=== PATIENT | female | born 1955 | race Caucasian/White ===

== ENCOUNTER → 2024-11-20 | Outpatient (CLI) | payer MEDICARE, SELFPAY ==
--- NOTE | 2024-11-20 09:00 | XR_ITS ---
Examination: Screening digital mammography, bilateral Computer aided detection 3-D breast Tomosynthesis, bilateral Date and time of exam: November 20, 2024 0811 hours Compared to mammograms dating to October 31, 2009 Indication: Screening Technique: Nonmagnified MLO, CC views of the breasts to been obtained, reconstructed from 3-D Tomosynthesis images. R2 computer aided detection program utilized for evaluation of suspicious masses and/or abnormal calcifications. 3-D Tomosynthesis images obtained. Findings: The breasts are heterogeneously dense, which may obscure small masses 6 mm focal asymmetry retroareolar region right breast Benign calcifications Impression: BI-RADS Category 0: Incomplete: Need additional imaging evaluation 6 mm focal asymmetry retroareolar region right breast, recommend follow-up spot tomographic views of this asymmetry as well as right breast sonography to complete the workup
== END | disposition home or self-care (01) ==
PROVIDERS: Referring Provider Nurse Practitioner Family; Visit Provider Nurse Practitioner Family
DX: Z12.31 Encounter for screening mammogram for malignant neoplasm of breast (principal); R92.8 Other abnormal and inconclusive findings on diagnostic imaging of breast; N64.89 Other specified disorders of breast
CPT/HCPCS: 77063; 77067

== ENCOUNTER → 2025-08-07 | Outpatient (CLI) | payer MEDICARE, MEDICAID, SELFPAY ==
--- NOTE | 2025-08-07 12:40 | XR_ITS ---
Examination: Bone densitometry Date and time of exam:August 07, 2025 1332 hours INDICATIONS: Menopause age 48 calcium and vitamin D 48 years, taking seizure medication Technique: Lumbar spine and hip total bone mineralization values of an calculated. Peak reference and age match control results have been displayed. Findings: Lumbar spine total bone mineralization is0.847 gm/cm2. This is 1.8 standard deviations below peak reference. This is 0.4 standard deviations above age-matched controls. Hip total bone mineralization is 0.531 gm/cm2 This is 3.4 standard deviations below peak reference. This is 1.7 standard deviations above age-matched controls Impression: There is osteopenia based on lumbar spine measurements. There is osteoporosis based on hip measurements
== END | disposition home or self-care (01) ==
PROVIDERS: PCP Nurse Practitioner Family; Referring Provider Nurse Practitioner Family; Visit Provider Nurse Practitioner Family
DX: Z13.820 Encounter for screening for osteoporosis (principal); M85.88 Other specified disorders of bone density and structure, other site; M81.0 Age-related osteoporosis without current pathological fracture
CPT/HCPCS: 77080

== ENCOUNTER 2025-08-12 13:58 | Emergency (ER) | payer MEDICAID, MEDICARE, SELFPAY ==
[2025-08-12 14:27] VITALS: BP 105/66; PULSE 99; RESP 18; TEMP 36.9; O2SAT 95
--- NOTE | 2025-08-12 14:57 | EDNOTE_ITS ---
<Statement entered by Keely Maldonado MD - 08/13/25 14:33> As co-signing physician, I was present and available for consult prn. I concur with the plan and care as documented by the midlevel provider. ED General RME/HPI General Chief complaint: General Adult/Misc Complain Stated complaint: MY BACK ITCHING Time Seen by Provider: 08/12/25 14:56 Arrival date/time: 08/12/25 13:58 RME / HPI RME / HPI narrative: 68-year-old patient presents emergency department with complaint of back rash for the past 3 days. Patient denies new detergent or new soap thinks it is because she has not taken a shower in the past couple days she also states that she has a pet cat that may have fleas. She rates her discomfort from her rash as a 10 out of 10. Related Data Home Medications ?Medication ?Instructions ?Recorded ?Confirmed phenytoin sodium extended 100 mg ##120 06/07/16 capsule primidone 250 mg tablet (Mysoline) 250 mg PO BID #0 ta bs 06/07/16 Previous Rx's ?Medication ?Instructions ?Recorded clotrimazole-betamethasone 1 1 applic topical BID 4 we eks #45 08/12/25 %-0.05 % topical cream grams hydroxyzine HCl 25 mg tablet 25 mg PO TID 7 days #21 t abs 08/12/25 Allergies Allergy/AdvReac Type Severity Reaction Status Date / Time No Known Allergies Allergy Verified 10/02/24 07:39 Review of Systems Review of Systems Systems Reviewed: All systems reviewed, normal except as documented Constitutional Constitutional: Reports system reviewed and no additional complaints, except as documented Cardiovascular Cardiovascular: Reports system reviewed and no additional complaints, except as documented Respiratory Respiratory: Reports system reviewed and no additional complaints, except as documented Gastrointestinal Gastrointestinal: Reports system reviewed and no additional complaints, except as documented Genitourinary Genitourinary: Reports system reviewed and no additional complaints, except as documented Musculoskeletal Musculoskeletal: Reports system reviewed and no additional complaints, except as documented Integumentary/Breasts Skin/Breast: Reports system reviewed and no additional complaints, except as documented, Denies bleeding lesions, Denies change in hair, Denies nail changes, Denies change in pigmentation and Reports rash ED Exam General General appearance: Present alert and in no apparent distress Head Head exam: Present atraumatic and normocephalic Eye Eye exam: Present normal appearance and PERRL ENT ENT exam: Present normal exam and normal oropharynx Chest Chest inspection: Present normal inspection and symmetric chest wall rise Respiratory Respiratory exam: Present normal lung sounds bilaterally Cardiovascular Cardiovascular exam: Present regular rate Extremities Exam Extremities exam: Present normal inspection and full ROM Neurological Exam Neurological exam: Present alert and oriented X3 Skin Skin exam: Present warm and rash; Absent diaphoresis, erythema, pallor or mottled Course Quality Measures none Orders Category Date Time Status Dexamethasone Inj [Decadron Inj] Med 08/12/25 14:56 Discontinued 10 mg IM X1 ONE DiphenhydrAMINE INJ [Benadryl Inj] Med 08/12/25 14:56 Discontinued 25 mg IM X1 ONE Famotidine [Pepcid] Med 08/12/25 14:56 Discontinued 40 mg PO X1 ONE Vital Signs Vital signs: Vital Signs Temperature 98.4 F 08/12/25 14:27 Pulse Rate 99 08/12/25 14:27 Respiratory Rate 18 08/12/25 14:27 Blood Pressure 105/66 08/12/25 14:27 Pulse Oximetry (%) 95 08/12/25 14:27 Oxygen Delivery Method Room Air 08/12/25 14:27 Discharge Plan Plan Patient Disposition: HOME (Self Care) Prescriptions/Referrals Prescriptions/Med Rec: New clotrimazole-betamethasone 1-0.05 % cream 1 applic topical BID 28 Days Qty: 45 0RF hydroxyzine HCl 25 mg tablet 25 mg PO TID 7 Days Qty: 21 0RF No Action primidone [Mysoline] 250 MG tablet 250 mg PO BID Qty: 0 phenytoin sodium extended 100 MG capsule Qty: 120 Problem List Clinical Impression: Hives, Allergic reaction, Tinea corporis Patient/Caregiver Discharge Instructions Education Materials: ED Fungal Skin Infection (Tinea), ED Hives (Adult) Print Language: [place] Stand Alone Forms: [facility] Award Info., Patient Portal Info Letter MDM Medication Administration(s) Medication Administration History Discontinued Medications Dexamethasone Sodium Phosphate (Dexamethasone Sod Phos Inj 4 Mg/Ml Vial) 10 mg IM X1 ONE; Protocol Stop: 08/12/25 14:57 Last Admin: 08/12/25 15:12 Dose: 10 mg Documented By: OA Diphenhydramine HCl (Diphenhydramine Inj 50 Mg/Ml Vial) 25 mg IM X1 ONE Stop: 08/12/25 14:57 Last Admin: 08/12/25 15:13 Dose: 25 mg Documented By: OA Famotidine (Famotidine 20 Mg Tablet) 40 mg PO X1 ONE Stop: 08/12/25 14:57 Last Admin: 08/12/25 15:13 Dose: 40 mg Documented By: OA
[2025-08-12] MEDS: DEXAMETHASONE SOD PHOS INJ 4 MG/ML VIAL 10 MG IM (15:12)
[2025-08-12] MEDS: FAMOTIDINE 20 MG TABLET 40 MG PO (15:13)
== END 2025-08-12 17:19 | disposition home or self-care (01) ==
PROVIDERS: Emergency Provider Emergency Medicine; PCP Internal Medicine
DX: L50.0 Allergic urticaria (principal); B35.4 Tinea corporis
CPT/HCPCS: 96372; 99283; J1100; J1200; A9270